=== PATIENT | female | born 1990 | race Two or more races ===

== ENCOUNTER 2019-03-02 15:24 | Emergency (ER) | payer SELFPAY ==
[~2019-03-02] VITALS: Ht 165.1 cm; Wt 58.0 kg
[2019-03-02 17:50] VITALS: BP 112/65
== END 2019-03-03 00:23 | disposition left against medical advice (07) ==
LOC: ER 15:24
DX: M79.18 Myalgia, other site (principal); Z53.21 Procedure and treatment not carried out due to patient leaving prior to being seen by health care provider